=== PATIENT | female | born 1975 | race Hispanic/Latino ===

== ENCOUNTER 2020-05-06 06:04 | Observation (INO) | payer OTHER ==
[2020-05-02 13:43] LABS: BASOPHILS % (AUTO) 0.7 % (0.0-5.0); EOSINOPHILS % (AUTO) 1.7 % (0.0-8.0); HEMATOCRIT 32.8 % (36-48); LYMPHOCYTES % (AUTO) 24.4 % (21.0-51.0); MEAN CORPUSCULAR HEMOGLOBIN 30.7 pg (27.0-33.0); MEAN CORPUSCULAR HGB CONC 35.7 g/dL (32.0-36.0); MEAN CORPUSCULAR VOLUME 86.1 fL (79-99); MONOCYTES % (AUTO) 6.5 % (3.0-13.0); NEUTROPHILS % (AUTO) 66.4 % (40.0-77.0); PLATELET COUNT (AUTO) 380 K/uL (130-400); RED BLOOD CELL COUNT(AUTO) 3.81 MIL/uL (4.00-5.50); RED CELL DISTRIBUTION WIDTH 12.5 % (11.0-15.5); WHITE BLOOD COUNT (AUTO) 7.5 K/uL (4.8-10.8)
[2020-05-02 13:58] LABS: INR 0.88 (0.85-1.15); PARTIAL THROMBOPLASTIN TIME 23.4 SEC (26.3-35.5); PROTHROMBIN TIME 9.6 SEC (9.6-11.6)
[2020-05-02 14:07] LABS: CREATININE 1.1 mg/dL (0.5-1.5); POTASSIUM 4.6 mmol/L (3.5-5.1)
[2020-05-06] VITALS (11 sets, daily range): BP systolic 85–135; BP diastolic 41–86
[~2020-05-06] VITALS: Ht 172.7 cm; Wt 89.6 kg
[~2020-05-06 06:04] MED LIST: ASPI-1443 PO; GLIM2TAB30 PO; INSU100I26 SQ; ozempic SQ
--- NOTE | 2020-05-06 07:21 | NUR ---
Last Menstrual Period As per pt Last menstrual period 04/29/2020. Had a tubal ligation in the past. Can not state when. Addendum: 05/06/20 at 0723 by KAREN ESPOSITO RN RN Amended: Links added.
[2020-05-06] MEDS ORDERED: MIDO2.5T PO (07:31)
[2020-05-06] MEDS ORDERED: SODIUM CHLORIDE 0.9% 1000ML 1,000 ML IV SCH (08:00)
[2020-05-06] MEDS ORDERED: MEPERIDINE-PF 25 MG/ML SYG ONE ×2 (08:59→10:37)
[2020-05-06] MEDS ORDERED: MIDAZOLAM HCL 1 MG/ML 2ML VIAL ONE ×2 (08:59→10:37)
[2020-05-06] MEDS ORDERED: HEPARIN SODIUM 1000UNIT/ML 10ML VIAL ONE (08:59)
[2020-05-06] MEDS ORDERED: LIDOCAINE HCL 2% 20ML ONE (08:59)
[2020-05-06] MEDS ORDERED: ISOPROTERENOL HCL 0.2 MG/ML AMP/VIAL/BAG ONE (11:21)
[2020-05-06] MEDS ORDERED: SEMAGLUTIDE SQ SCH (12:15)
--- NOTE | 2020-05-06 12:20 | NUR ---
POST OP Dr Moura informed spouse of admission to hospital. Verbalized understanding. Escorted to Room 401.
--- NOTE | 2020-05-06 12:20 | NUR ---
RECEIVED FROM SHOE IRONER VIA BED ACCOMPANIED BY Anne DE LEON RN. PT. AAOX3, RESP.'S EVEN AND UNLABORED. DENIES ANY C/O SOB, DENIES ANY C/O PAIN. INSTRUCTED ON STRICT BR PER MD ORDERS, VERBALIZED UNDERSTANDING. BILATERAL GROINS WITH LIGHT DRSG.'S IN PLACE, D/I; NO ECCHYMOSIS OR HEMATOMA NOTED. FEET WARM, PP'S (+) BILATERALLY. CALL LIGHT WITHIN REACH, VERBALIZED ABILITY TO USE. BED PLACED IN REVERSE [place] POSITION FOR COMFORT. SIDE RAILS UP.
--- NOTE | 2020-05-06 13:10 | NUR ---
Akosua MCGINNIS NP, IN ROOM ASSESSING/SPEAKING WITH PT. PT.'S SPOUSE AT BEDSIDE. QUESTIONS ANSWERED BY Akosua MCGINNIS NP, VERBALIZED MUTUAL UNDERSTANDING. THIS NURSE PRESENT FACILITY MAINTENANCE MECHANIC.
[2020-05-06] MEDS ORDERED: GLUCAGON 1MG KIT 1 MG ML IM PRN (13:30)
[2020-05-06] MEDS ORDERED: DEXTROSE 50%-WATER 50 ML DISP.SYRIN IV PRN (13:30)
[2020-05-06] MEDS ORDERED: ACETAMINOPHEN 325 MG TAB PO PRN (13:30)
--- NOTE | 2020-05-06 16:20 | NUR ---
BR COMPLETED. BILATERAL GROINS SOFT, NO HEMATOMA NOTED. ASSISTED TO SIT UP IN BED. DENIES ANY C/O AT THIS TIME. CALL LIGHT WITHIN REACH. SPOUSE AT BEDSIDE.
[2020-05-06] MEDS: INSULIN HUMULIN R 100 UNIT/ML 3ML SQ SCH ×2 (16:44→21:00)
--- NOTE | 2020-05-06 17:05 | NUR ---
SITTING UP IN BED EATING DINNER W/O C/O. CALL LIGHT WITHIN REACH. SPOUSE AT BEDSIDE.
[2020-05-06] MEDS: ACETAMINOPHEN 325 MG TAB PO PRN (19:04)
[2020-05-06] MEDS ORDERED: MIDODRINE HCL 2.5 MG PO SCH (21:00)
[2020-05-06] MEDS ORDERED: INSULIN GLARGINE HUM REC ANLOG SQ SCH (21:00)
[2020-05-06] MEDS ORDERED: INSULIN GLARGINE 100 UNITS/ML 10 ML VIAL SQ SCH (21:00)
[2020-05-06] MEDS ORDERED: [UNRECOGNIZED DRUG - OTHER] SQ SCH (21:00)
[2020-05-06] MEDS: FAMOTIDINE 20MG TAB 20 MG TAB PO SCH (22:04)
[2020-05-06] MEDS: MIDODRINE HCL 5 MG TABLET PO SCH (22:04)
[2020-05-06] MEDS: GLIMEPIRIDE 2 MG TABLET PO SCH (22:05)
[2020-05-07 00:09] VITALS: BP 143/80
[2020-05-07] MEDS: ACETAMINOPHEN 325 MG TAB PO PRN (02:56)
[2020-05-07 03:58] VITALS: BP 137/77
--- NOTE | 2020-05-07 03:59 | NUR ---
PATIENT COMPLAINED OF CHEST PRESSURE, NO PAIN ACCORDING TO PATIENT. SHE DESCRIBED IT LIKE HEARTBURN ACID IN THE ESOPHAGUS. VITAL SIGNS WITHIN NORMAL RANGE BP 137/77, HR 106, RR 17, O2 SAT TO ROOM AIR 100%. BREATH SOUNDS UPON AUSCULTATION ARE CLEAR IN UPPER AND LOWER LOBES. PT ALERT ORIENTED X 4. INFORMED DITCHER OPERATOR FOR HOSPITALIST, YESI BUTLER, HE ORDERED CARDIAC PANEL, SUCRALFATE 1 GM X 1 DOSE. RIGHT GROIN ASSESSED, SOFT, NON TENDER, NO HEMATOMA NOTED. PULSES STRONG UPON PALPATION IN RADIAL AND DORSALIS PEDIS.
[2020-05-07] MEDS ORDERED: SUCRALFATE 1 GM TABLET PO SCH (04:00)
[2020-05-07] MEDS ORDERED: SUCRALFATE 1 GM TABLET ONE (04:03)
[2020-05-07 05:39] LABS: BASOPHILS % (AUTO) 0.6 % (0.0-5.0); EOSINOPHILS % (AUTO) 2.2 % (0.0-8.0); HEMATOCRIT 29.5 % (36-48); LYMPHOCYTES % (AUTO) 30.6 % (21.0-51.0); MEAN CORPUSCULAR HEMOGLOBIN 30.5 pg (27.0-33.0); MEAN CORPUSCULAR HGB CONC 35.6 g/dL (32.0-36.0); MEAN CORPUSCULAR VOLUME 85.8 fL (79-99); MONOCYTES % (AUTO) 8.7 % (3.0-13.0); NEUTROPHILS % (AUTO) 57.6 % (40.0-77.0); PLATELET COUNT (AUTO) 296 K/uL (130-400); RED BLOOD CELL COUNT(AUTO) 3.44 MIL/uL (4.00-5.50); RED CELL DISTRIBUTION WIDTH 12.2 % (11.0-15.5); WHITE BLOOD COUNT (AUTO) 7.3 K/uL (4.8-10.8)
[2020-05-07 06:23] LABS: CREATININE 1.1 mg/dL (0.5-1.5); POTASSIUM 4.9 mmol/L (3.5-5.1)
[2020-05-07 06:25] LABS: TROPONIN I 0.66 ng/mL (0.00-0.06)
[2020-05-07] MEDS: INSULIN HUMULIN R 100 UNIT/ML 3ML SQ SCH (06:40)
--- NOTE | 2020-05-07 07:00 | NUR ---
0630 SPOKE WITH HOSPITALIST THIS MORNING MD BRANDON, INFORMED ABOUT EKG RESULTS AND TROPONIN, HE SAID TO CALL DISPLAY DECORATOR 07:00SPOKE WITH DOCTOR CHILO, MULTICULTURAL SERVICES LIBRARIAN WITH [employer], INFORMED ABOUT EKG RESULT AND TROPONIN OF 0.66, HE SAID THATS FINE HE WILL INFORM THE DOCTOR OF THE PATIENT. NO ORDERS MADE. INFORMED HIM PT DENIED OF ANY PAIN NOR SOB NOR ANY HEARTBURN NOW. INFORMED NURSE VIKAS ABOUT IT. CLOSE MONITORING
[2020-05-07 08:21] VITALS: BP 93/62
[2020-05-07] MEDS: GLIMEPIRIDE 2 MG TABLET PO SCH (08:30)
[2020-05-07] MEDS: FAMOTIDINE 20MG TAB 20 MG TAB PO SCH (08:30)
[2020-05-07] MEDS: MIDODRINE HCL 5 MG TABLET PO SCH (08:30)
[2020-05-07] MEDS ORDERED: ASPIRIN 81 MG EC TAB PO SCH (09:00)
[2020-05-07 12:00] VITALS: BP 160/94
--- NOTE | 2020-05-07 14:30 | NUR ---
Discharge instructions provided in the room with pt. Emphasis on dx, s/s to monitor for, post ablation care including site care/monitoring, hygiene, activity. Also discussed when to seek emergency care vs dial 911. Pt has follow up appointments set with Dr. Maddox on 05/13 and PCP on 05/19. Written rx for protonix given to pt. Discussed purpose, route, frequency, and duration of treatment, as well as side effects and adverse effects. PIV removed, tip intact. Dressed with sterile 2x2 and band aid after hemostasis. Pt wheeled to front lobby [place] [facility] [place] transport home via private car. Pt in stable condition a time of discharge.
[2020-05-13] MEDS ORDERED: SEMAGLUTIDE SQ SCH (09:00)
== END 2020-05-07 14:45 | disposition home or self-care (01) ==
LOC: DAH 06:04 → DAHIP 06:05 → 4AH 12:44
PROVIDERS: ADMIT Internal Medicine; ATTEND Internal Medicine
DX: I48.92 Unspecified atrial flutter (principal); I10 Essential (primary) hypertension; E11.9 Type 2 diabetes mellitus without complications; D84.9 Immunodeficiency, unspecified; I47.1 Supraventricular tachycardia
CPT/HCPCS: 36415 ×2; 80048 ×2; 82550; 82948 ×5; 83874; 84484; 85025 ×2; 85610; 85730; 93005 ×2; 93613; 93621; 93623; 93653; 96372 ×2; A4215; A4216; A4221; A4222; A4223 ×3; A4606; A4649 ×2; A4663; C1730 ×4; C1731; C1732; C1894 ×3; G0378 ×27; J1644 ×3; J1815 ×2; J2175 ×2; J2250 ×2; J3490 ×2; J7030; 99156; 99157